=== PATIENT | male | born 1950 | race Caucasian/White ===

== ENCOUNTER 2019-09-21 06:39 | Outpatient (CLI) | payer MEDICARE, BC, OTHER ==
[2019-09-21 11:51] LABS: Hemoglobin 13.7 g/dL (14.0-18.0); Mean Corpuscular HGB CONC 32.6 g/dL (32.0-36.0); Mean Corpuscular Hemoglobin 31.8 pg (27.0-31.0); Mean Corpuscular Volume 97.7 fL (78.0-98.0); Mean Platelet Volume 8.3 fL (7.4-10.4); Platelet Count 174 thou/uL (130-400); RBC Distribution Width 11.7 % (11.5-14.5)
[2019-09-21 11:58] LABS: PTT 26.9 sec (22.9-36.1); Prothrombin Time 12.7 sec (12.0-14.7)
[2019-09-21 17:52] LABS: SARS-CoV-2 MS2 Positive; SARS-CoV-2 N Gene Negative; SARS-CoV-2 S Gene Negative; SARS-CoV-2 orf1ab Negative
== END 2019-09-21 06:40 | disposition home or self-care (01) ==
LOC: LABBT 06:39
PROVIDERS: ATTEND Neurological Surgery
DX: Z01.818 Encounter for other preprocedural examination (principal); Z11.59 Encounter for screening for other viral diseases; M48.062 Spinal stenosis, lumbar region with neurogenic claudication
CPT/HCPCS: 85027; 85610; 85730; 93005; U0003; 87635; 93010

== ENCOUNTER 2019-09-24 05:40 | Day surgery (SDC) | payer MEDICARE, BC ==
[2019-09-21 10:18] VITALS: BMI 29.5
[2019-09-24] MEDS ORDERED: Levofloxacin 500 mg/D5W 100 ml Premix Bag ONE (06:05)
[2019-09-24] MEDS ORDERED: Clindamycin/D5W 900 mg/50 ml Premix Bag ONE ×2 (06:05→12:42)
[2019-09-24] MEDS ORDERED: Fentanyl 100 MCG/2 ML VIAL ONE ×3 (06:23→09:27)
[2019-09-24] MEDS ORDERED: Thrombin 5000 UNITS/5 ML VIAL ONE (06:27)
[2019-09-24] MEDS ORDERED: Bupivacaine PF 0.5% 30 ML VIAL ONE ×2 (06:27→06:34)
[2019-09-24] MEDS ORDERED: EPINEPHrine 1 MG/ML AMP ONE ×2 (06:27→06:34)
[2019-09-24] MEDS ORDERED: Midazolam HCl 2 mg/2 ml Vial ONE (06:53)
[2019-09-24] MEDS ORDERED: Phenylephrine 10 MG/ML VIAL ONE (08:17)
[2019-09-24] MEDS ORDERED: diphenhydrAMINE 25 MG CAP PO PRN (09:21)
[2019-09-24] MEDS ORDERED: diphenhydrAMINE 50 MG/ML VIAL IVP PRN (09:21)
[2019-09-24] MEDS ORDERED: Acetaminophen 650 MG Suppository PR PRN (09:21)
[2019-09-24] MEDS ORDERED: Promethazine HCl 12.5 MG SUPP PR PRN (09:21)
[2019-09-24] MEDS ORDERED: Acetaminophen/Codeine 30-300mg Tablet PO PRN ×2 (09:21)
[2019-09-24] MEDS ORDERED: Promethazine 25 MG TAB PO PRN (09:21)
[2019-09-24] MEDS ORDERED: traMADol HCl 50 MG TAB PO PRN ×2 (09:21)
[2019-09-24] MEDS ORDERED: tiZANidine HCl 4 MG TAB PO PRN (09:21)
[2019-09-24] MEDS ORDERED: Acetaminophen 325 MG TAB PO PRN (09:21)
[2019-09-24] MEDS ORDERED: Morphine 2 MG/ML SYRINGE SLOW IVP PRN (09:21)
[2019-09-24] MEDS ORDERED: HYDROcodone/Acetaminophen 7.5/325 mg Tablet PO PRN ×2 (09:21)
[2019-09-24] MEDS ORDERED: Ondansetron PF 4 MG/2 ML Vial IVP PRN (09:21)
[2019-09-24] MEDS ORDERED: Promethazine HCl 25 MG/ML VIAL IM PRN (09:21)
[2019-09-24] MEDS ORDERED: Tamsulosin HCl 0.4 MG CAP ONE (09:27)
[2019-09-24] MEDS ORDERED: Scopolamine 1.5 mg/72 hour Patch TD SCH (09:30)
[2019-09-24] MEDS ORDERED: Sodium Chloride 0.9% 1,000 ML IV SCH (09:30)
--- NOTE | 2019-09-24 09:42 | OP ---
DATE OF PROCEDURE: 09/24/2019 [employer]: None. PREOPERATIVE INDICATION: Treat pain, prevent neurological deterioration. PREOPERATIVE DIAGNOSIS: Lumbar spinal stenosis with severe neurogenic claudication. POSTOPERATIVE DIAGNOSIS: Lumbar spinal stenosis with severe neurogenic claudication. PROCEDURES PERFORMED: Decompressive laminectomy, medial facetectomy, foraminotomy at L3-4, L4-5. PREOPERATIVE MEDICATIONS: Clindamycin 900 mg IV, Levaquin 500 mg IV. DRAIN NUMBER: Zero. DRAIN TYPE: None. DESCRIPTION OF PROCEDURE: The patient was brought to the operating room. General endotracheal anesthesia was induced. The patient was positioned prone with his chest and hips supported by gel-filled chest rolls. A lateral fluoro radiograph was used to plan our incision. The lumbar skin was sterilely prepped and draped. We opened with a 10-blade knife and we controlled bleeding with bipolar and monopolar cautery. We used monopolar cautery to dissect through subcutaneous tissues to the thoracodorsal fascia. We incised the fascia in the midline and we reflected the paraspinal muscles off the spinous process and lamina of L3, L4, L5. Self-retaining retractor was placed. A lateral fluoro radiograph confirmed the levels upon which we were operating. We then used an angled curette to free the yellow ligament from the undersurface of the lamina of L4 and L3. An Adson rongeur was used to remove the spinous processes and a Kerrison rongeur to fashion a laminectomy down the midline. We widened our laminectomy defect by performing medial facetectomies at each of the interspaces. We undermined the lateral recesses and removed the yellow ligament until the lateral recesses at L3-4 and L4-5 overall decompressed. We performed foraminotomies over the exiting L3, L4, L5 nerve roots with foraminotomy Kerrisons. At the completion of his decompression, a Larsen ball probe could pass through the lateral recess and out the foramen without any impingement at L3-4 and at L4-5. We irrigated with bacitracin irrigation. We waxed the bone edges. We controlled bleeding with bipolar cautery. We infused local anesthetic in the paraspinal muscles. We treated the wound with vancomycin powder. We closed in anatomical layers. We applied a sterile dressing. It was a clean case, no contamination. Job ID: [id number]
[2019-09-24] MEDS ORDERED: HYDROcodone/Acetaminophen 5/325 mg Tablet ONE (10:02)
[2019-09-24] MEDS ORDERED: PHENYLEPHRINE-NS 100 MCG/ML 10 ML SYRINGE ONE (11:52)
[2019-09-24] MEDS ORDERED: Rocuronium Bromide 10 MG/ML (10ML VIAL) ONE (11:52)
[2019-09-24] MEDS ORDERED: Lidocaine 1% PF 5 ML VIAL ONE (11:52)
[2019-09-24] MEDS ORDERED: Ondansetron PF 4 MG/2 ML Vial ONE (11:52)
[2019-09-24] MEDS ORDERED: EPHEDRINE 25 MG/5 ML SYRINGE ONE (11:52)
[2019-09-24] MEDS ORDERED: PROPOFOL 200 MG/20 ML VIAL ONE (11:52)
[2019-09-24] MEDS ORDERED: Dexamethasone 20 MG/5 ML VIAL ONE (11:52)
[2019-09-24] MEDS ORDERED: Glycopyrrolate 0.2 MG/ML 5 ML SYRINGE ONE (11:52)
[2019-09-24] MEDS ORDERED: Clindamycin/D5W 900 MG in Premix Bag 1 BAG IVPB SCH (14:00)
[2019-09-25] MEDS ORDERED: Tamsulosin HCl 0.4 MG CAP PO SCH (06:00)
== END 2019-09-24 13:18 | disposition home or self-care (01) ==
LOC: SDC 05:40
PROVIDERS: ATTEND Neurological Surgery
PROC: 01NB0ZZ Release Lumbar Nerve, Open Approach (ICD-10-PCS; principal; 2019-09-24)
DX: M48.062 Spinal stenosis, lumbar region with neurogenic claudication (principal); E11.9 Type 2 diabetes mellitus without complications; Z79.82 Long term (current) use of aspirin; Z79.84 Long term (current) use of oral hypoglycemic drugs; Z79.899 Other long term (current) drug therapy; Z88.0 Allergy status to penicillin; Z95.1 Presence of aortocoronary bypass graft
CPT/HCPCS: 76000; J0171; J1956; J2250; J2370; J3010; J3370; J3490; S0020

== ENCOUNTER 2022-07-07 13:17 | Outpatient (CLI) | payer MEDICARE, BC ==
[2022-07-07 14:16] LABS: Anion Gap 16 mmol/L (10-20); BUN (Urea Nitrogen) 29 mg/dL (8.4-25.7); Calc. Creatinine Clearance 0 mL/min (70-130); Calcium 9.2 mg/dL (7.8-10.44); Carbon Dioxide 26 mmol/L (23-31); Chloride 100 mmol/L (98-107); Estimated GFR 44; Glucose 239 mg/dL (83-110); INR-International Normal Ratio 0.9; PTT 26.1 sec (22.0-33.0); Potassium 4.1 mmol/L (3.5-5.1); Prothrombin Time 10.3 sec (9.5-12.1); Sodium 138 mmol/L (136-145)
[2022-07-07 14:19] LABS: Hemoglobin 12.5 g/dL (13.5-17.5); Mean Corpuscular HGB CONC 32.3 g/dL (32.0-36.0); Mean Platelet Volume 10.1 fl (7.4-10.4); Platelet Count 206 10x3/uL (150-450); RBC Distribution Width 13.1 % (11.5-14.5); Red Blood Cell (RBC) Count 4.03 10x6/uL (4.32-5.72); White Blood Cell (WBC) Count 6.7 10x3/uL (3.5-10.5)
== END 2022-07-07 13:18 | disposition home or self-care (01) ==
LOC: LABBT 13:17
PROVIDERS: ATTEND Neurological Surgery
DX: Z01.818 Encounter for other preprocedural examination (principal); M48.061 Spinal stenosis, lumbar region without neurogenic claudication; M43.16 Spondylolisthesis, lumbar region
CPT/HCPCS: 80048; 85027; 85610; 85730; 93005; 93010